=== PATIENT | female | born 1950 | race Caucasian/White ===

== ENCOUNTER 2019-06-11 11:46 | Inpatient (IN) | payer MEDICARE, OTHER ==
[~2019-06-11] VITALS: Ht 165.1 cm; Wt 87.6 kg
[2019-06-11 12:15] LABS: GLUCOSE,POINT OF CARE 188 MG/DL (70-110)
[2019-06-11 12:17] LABS: BASOPHILS % (AUTO) 0.7 % (0.0-2.0); EOSINOPHILS % (AUTO) 1.1 % (1.0-6.0); HEMATOCRIT 36.3 % (36-46); HEMOGLOBIN 12.6 g/dL (12.0-16.0); LYMPHOCYTES # (AUTO) 2.1 K/uL (1.0-4.8); LYMPHOCYTES % (AUTO) 22.9 % (22.0-44.0); MEAN CORPUSCULAR HEMOGLOBIN 31.5 pg (26.0-34.0); MEAN CORPUSCULAR HGB CONC 34.8 G/dL (31.0-37.0); MEAN CORPUSCULAR VOLUME 91 fL (80-100); MONOCYTES # (AUTO) 0.6 K/uL (0.1-1.0); MONOCYTES % (AUTO) 6.6 % (2.0-9.0); NEUTROPHILS # (AUTO) 6.2 K/uL (1.8-7.7); NEUTROPHILS % (AUTO) 68.7 % (40.0-70.0); PLATELET COUNT (AUTO) 415 K/uL (150-450); RED BLOOD CELL COUNT(AUTO) 4.01 MIL/uL (4.00-5.20); RED CELL DISTRIBUTION WIDTH 13.6 % (11.5-14.5)
[2019-06-11 12:25] LABS: ANION GAP 8 mmol/L (8-16); CALCIUM, TOTAL 9.1 mg/dL (8.8-10.5); CARBON DIOXIDE 28 mmol/L (22-29); CHLORIDE 98 mmol/L (98-107); CREATININE 0.79 mg/dL (0.60-1.30); GLOMERULAR FILTR. RATE CALC > 60 mL/min (>60); GLUCOSE,RANDOM 216 mg/dL (70-110); POTASSIUM 4.1 mmol/L (3.5-5.1); SODIUM SERUM 134 mmol/L (136-145); UREA NITROGEN, BLOOD 12 mg/dL (7-18)
[2019-06-11 12:31] LABS: ALANINE AMINOTRANSFERASE 49 U/L (12-78); ALBUMIN 3.9 g/dL (3.4-5.0); ALKALINE PHOSPHATASE 90 U/L (46-116); ASPARTATE AMINOTRANSFERASE 27 U/L (15-37); BILIRUBIN,TOTAL 0.3 mg/dL (0.1-1.0); TOTAL PROTEIN, SERUM 7.9 g/dL (6.4-8.2)
[2019-06-11] MEDS ORDERED: FAMOTIDINE 10 MG/ML 2 ML VIAL IVP ONE (12:45)
[2019-06-11] MEDS ORDERED: MAG HYDROX/AL HYDROX/SIMETH 30 ML SUSP UDCUP PO ONE (12:45)
[2019-06-11] MEDS ORDERED: IOVERSOL 350 MG/ML 100 ML VIAL ONE (12:53)
[2019-06-11] MEDS ORDERED: SODIUM CHLORIDE 0.9% 100 ML ONE (12:53)
[2019-06-11 12:54] LABS: LIPASE 119 U/L (73-393)
[2019-06-11] MEDS ORDERED: DEXTROSE 50%-WATER 25 GM/50 ML SYRINGE IVP PRN (14:00)
[2019-06-11] MEDS: METOPROLOL TARTRATE 25 MG TABLET PO SCH ×2 (14:00→20:31)
[2019-06-11] MEDS ORDERED: ASPIRIN 81 MG CHEWABLE TABLET PO ONE (15:15)
[2019-06-11] MEDS: ATORVASTATIN CALCIUM 20 MG TABLET PO SCH (15:51)
[2019-06-11 17:24] VITALS: BP 136/78
[2019-06-11 18:05] LABS: GLUCOMETER DEV NAME(LOC) 5S.1; GLUCOSE,POINT OF CARE 153 MG/DL (70-110)
[2019-06-11 20:10] VITALS: BP 129/99
[2019-06-11] MEDS: DOCUSATE SODIUM 100 MG CAPSULE PO SCH (20:31)
[2019-06-11] MEDS: INSULIN LISPRO 100 UNITS/ML SQ PRN (21:12)
[2019-06-11 22:04] LABS: GLUCOMETER DEV NAME(LOC) 5S.2A; GLUCOSE,POINT OF CARE 238 MG/DL (70-110)
[2019-06-11] MEDS: ACETAMINOPHEN 325 MG TABLET PO PRN (23:45)
[2019-06-11 23:52] VITALS: BP 121/74
[2019-06-12] VITALS (16 sets, daily range): BP systolic 111–151; BP diastolic 62–92
[2019-06-12] MEDS ORDERED: MAGNESIUM HYDROXIDE SUSPENSION 30 ML UDCUP PO PRN (00:15)
[2019-06-12] MEDS ORDERED: MORPHINE SULFATE 2 MG/ML SYRINGE IVP ONE (00:15)
[2019-06-12] MEDS: ONDANSETRON HCL 4 MG/2 ML VIAL IVP PRN ×2 (03:23→15:00)
[2019-06-12] MEDS: ACETAMINOPHEN 325 MG TABLET PO PRN (03:30)
[2019-06-12] MEDS: INSULIN LISPRO 100 UNITS/ML SQ PRN ×3 (06:38→21:37)
[2019-06-12 07:11] LABS: GLUCOMETER DEV NAME(LOC) 5S.1; GLUCOSE,POINT OF CARE 316 MG/DL (70-110)
[2019-06-12] MEDS: ATORVASTATIN CALCIUM 20 MG TABLET PO SCH (09:00)
[2019-06-12] MEDS: ASPIRIN 81 MG CHEWABLE TABLET PO SCH (09:00)
[2019-06-12] MEDS: DOCUSATE SODIUM 100 MG CAPSULE PO SCH ×2 (09:00→20:58)
[2019-06-12] MEDS ORDERED: NITROGLYCERIN 0.4 MG SUBLINGUAL TABLET #25 SL PRN (09:00)
[2019-06-12] MEDS: FAMOTIDINE 20 MG TABLET PO SCH (09:00)
[2019-06-12] MEDS: METOPROLOL TARTRATE 25 MG TABLET PO SCH (09:00)
[2019-06-12 09:19] LABS: BASOPHILS % (AUTO) 0.2 % (0.0-2.0); EOSINOPHILS % (AUTO) 0.1 % (1.0-6.0); HEMATOCRIT 36.5 % (36-46); HEMOGLOBIN 12.6 g/dL (12.0-16.0); LYMPHOCYTES # (AUTO) 1.3 K/uL (1.0-4.8); LYMPHOCYTES % (AUTO) 9.6 % (22.0-44.0); MEAN CORPUSCULAR HEMOGLOBIN 31.3 pg (26.0-34.0); MEAN CORPUSCULAR HGB CONC 34.6 G/dL (31.0-37.0); MEAN CORPUSCULAR VOLUME 91 fL (80-100); MONOCYTES # (AUTO) 0.5 K/uL (0.1-1.0); MONOCYTES % (AUTO) 3.8 % (2.0-9.0); NEUTROPHILS # (AUTO) 11.6 K/uL (1.8-7.7); PLATELET COUNT (AUTO) 464 K/uL (150-450); RED BLOOD CELL COUNT(AUTO) 4.03 MIL/uL (4.00-5.20); RED CELL DISTRIBUTION WIDTH 13.9 % (11.5-14.5)
[2019-06-12 09:27] LABS: NEUTROPHILS % (AUTO) 86.3 % (40.0-70.0)
[2019-06-12 09:45] LABS: CALCIUM, TOTAL 9.2 mg/dL (8.8-10.5); CREATININE 0.97 mg/dL (0.60-1.30); POTASSIUM 3.8 mmol/L (3.5-5.1); THYROID STIMULATING HORMONE 22.54 uIU/mL (0.36-3.74)
[2019-06-12] MEDS ORDERED: HEPARIN SODIUM 25000 UNITS/D5W 250 ML IV PRN (10:19)
[2019-06-12] MEDS ORDERED: HEPARIN SODIUM,PORCINE 5,000 UNITS/ML VIAL IVP PRN ×2 (10:30)
[2019-06-12] MEDS ORDERED: HEPARIN SODIUM,PORCINE 5,000 UNITS/ML VIAL IVP ONE ×3 (10:30→14:00)
[2019-06-12 10:56] LABS: BASOPHILS % (AUTO) 0.4 % (0.0-2.0); EOSINOPHILS % (AUTO) 0 % (1.0-6.0); HEMATOCRIT 36.4 % (36-46); HEMOGLOBIN 12.5 g/dL (12.0-16.0); LYMPHOCYTES % (AUTO) 13.2 % (22.0-44.0); MEAN CORPUSCULAR HGB CONC 34.3 G/dL (31.0-37.0); MEAN CORPUSCULAR VOLUME 90 fL (80-100); MONOCYTES # (AUTO) 0.7 K/uL (0.1-1.0); MONOCYTES % (AUTO) 4.8 % (2.0-9.0); NEUTROPHILS # (AUTO) 12.6 K/uL (1.8-7.7); NEUTROPHILS % (AUTO) 81.6 % (40.0-70.0); PLATELET COUNT (AUTO) 475 K/uL (150-450); RED BLOOD CELL COUNT(AUTO) 4.02 MIL/uL (4.00-5.20); RED CELL DISTRIBUTION WIDTH 13.9 % (11.5-14.5)
[2019-06-12] MEDS: LEVOTHYROXINE SODIUM 75 MCG TABLET PO SCH (12:00)
[2019-06-12] MEDS ORDERED: SODIUM BICARBONATE 50 MEQ/50 ML VIAL ONE (12:02)
[2019-06-12] MEDS ORDERED: IOHEXOL 300 MG/ML 150 ML VIAL ONE (12:02)
[2019-06-12] MEDS ORDERED: LIDOCAINE/PF 1% 30 ML VIAL ONE (12:02)
[2019-06-12] MEDS ORDERED: HEPARIN SODIUM 1000 UNITS/NS 1,000 ML ONE (12:02)
[2019-06-12 12:09] LABS: FREE T4 (FREE THYROXINE) 0.61 ng/dL (0.76-1.46)
[2019-06-12 12:33] LABS: GLUCOMETER DEV NAME(LOC) 5S.1; GLUCOSE,POINT OF CARE 246 MG/DL (70-110)
[2019-06-12] MEDS ORDERED: HEPARIN SODIUM 2,000 UNITS in HEPARIN SODIUM 1000 UNITS/NS 1,000 ML IARTER ONE (12:51)
[2019-06-12] MEDS ORDERED: SODIUM CHLORIDE 0.9% 500 ML IV ONE (12:51)
[2019-06-12] MEDS ORDERED: FentaNYL CITRATE-PF 100 MCG/2 ML VIAL ONE (12:53)
[2019-06-12] MEDS ORDERED: MIDAZOLAM HCL 2 MG/2 ML VIAL ONE (12:53)
[2019-06-12] MEDS ORDERED: IOHEXOL 300 MG/ML 100 ML VIAL IARTER ONE (13:00)
[2019-06-12] MEDS ORDERED: IOHEXOL 300 MG/ML 50 ML VIAL IARTER ONE ×2 (13:00→14:00)
[2019-06-12] MEDS ORDERED: FentaNYL CITRATE-PF 100 MCG/2 ML VIAL IVP ONE (13:00)
[2019-06-12] MEDS ORDERED: MIDAZOLAM HCL 2 MG/2 ML VIAL IVP ONE (13:00)
[2019-06-12] MEDS ORDERED: ASPIRIN 325 MG TABLET PO ONE (13:00)
[2019-06-12] MEDS ORDERED: LIDOCAINE 1% 30 ML/SOD BICARB 8.4% 4 ML SQ ONE (13:00)
[2019-06-12] MEDS ORDERED: IOHEXOL 300 MG/ML 150 ML VIAL IARTER ONE (13:00)
[2019-06-12] MEDS ORDERED: TICAGRELOR 90 MG TABLET PO ONE (13:00)
[2019-06-12] MEDS ORDERED: TICAGRELOR 90 MG TABLET ONE (13:04)
[2019-06-12] MEDS ORDERED: ASPIRIN 325 MG TABLET ONE (13:04)
[2019-06-12] MEDS ORDERED: IOHEXOL 300 MG/ML 50 ML VIAL ONE ×2 (13:10→13:38)
[2019-06-12] MEDS ORDERED: IOHEXOL 300 MG/ML 100 ML VIAL ONE (13:10)
[2019-06-12] MEDS ORDERED: NITROGLYCERIN 50 MG/D5% WATER 250 ML ONE (13:32)
[2019-06-12] MEDS ORDERED: VERAPAMIL HCL 2.5 MG/ML 2 ML VIAL ONE (13:32)
[2019-06-12] MEDS ORDERED: VERAPAMIL HCL 2.5 MG/ML 2 ML VIAL ICOR ONE ×2 (13:45→14:00)
[2019-06-12] MEDS ORDERED: NITROGLYCERIN/D5W 50 MG/250 ML IV BOTTLE ICOR ONE ×2 (13:45→14:00)
[2019-06-12] MEDS ORDERED: ALPRAZolam 0.5 MG TABLET PO ONE (15:15)
[2019-06-12 17:35] LABS: GLUCOSE,POINT OF CARE 236 MG/DL (70-110)
[2019-06-12] MEDS: TICAGRELOR 90 MG TABLET PO SCH (20:58)
[2019-06-12 21:58] LABS: GLUCOSE,POINT OF CARE 215 MG/DL (70-110)
[2019-06-13] VITALS (7 sets, daily range): BP systolic 97–121; BP diastolic 60–76
[2019-06-13 05:09] LABS: BASOPHILS % (AUTO) 0.3 % (0.0-2.0); EOSINOPHILS % (AUTO) 0.1 % (1.0-6.0); HEMATOCRIT 34.5 % (36-46); HEMOGLOBIN 12.2 g/dL (12.0-16.0); LYMPHOCYTES # (AUTO) 1.6 K/uL (1.0-4.8); LYMPHOCYTES % (AUTO) 10.4 % (22.0-44.0); MEAN CORPUSCULAR HEMOGLOBIN 31.7 pg (26.0-34.0); MEAN CORPUSCULAR HGB CONC 35.3 G/dL (31.0-37.0); MEAN CORPUSCULAR VOLUME 90 fL (80-100); MONOCYTES # (AUTO) 1.5 K/uL (0.1-1.0); MONOCYTES % (AUTO) 9.8 % (2.0-9.0); NEUTROPHILS # (AUTO) 11.9 K/uL (1.8-7.7); NEUTROPHILS % (AUTO) 79.4 % (40.0-70.0); PLATELET COUNT (AUTO) 388 K/uL (150-450); RED BLOOD CELL COUNT(AUTO) 3.85 MIL/uL (4.00-5.20); RED CELL DISTRIBUTION WIDTH 13.9 % (11.5-14.5)
[2019-06-13 05:26] LABS: ALANINE AMINOTRANSFERASE 69 U/L (12-78); ALBUMIN 3.5 g/dL (3.4-5.0); ALKALINE PHOSPHATASE 84 U/L (46-116); ANION GAP 10 mmol/L (8-16); ASPARTATE AMINOTRANSFERASE 378 U/L (15-37); BILIRUBIN,TOTAL 0.7 mg/dL (0.1-1.0); CALCIUM, TOTAL 8.4 mg/dL (8.8-10.5); CARBON DIOXIDE 25 mmol/L (22-29); CHLORIDE 96 mmol/L (98-107); CREATININE 0.81 mg/dL (0.60-1.30); GLOMERULAR FILTR. RATE CALC > 60 mL/min (>60); GLUCOSE,RANDOM 275 mg/dL (70-110); POTASSIUM 3.7 mmol/L (3.5-5.1); SODIUM SERUM 131 mmol/L (136-145); TOTAL PROTEIN, SERUM 7.3 g/dL (6.4-8.2); UREA NITROGEN, BLOOD 12 mg/dL (7-18)
[2019-06-13] MEDS: LEVOTHYROXINE SODIUM 75 MCG TABLET PO SCH (06:21)
[2019-06-13] MEDS: INSULIN LISPRO 100 UNITS/ML SQ PRN ×3 (06:22→21:56)
[2019-06-13 06:33] LABS: GLUCOSE,POINT OF CARE 308 MG/DL (70-110)
[2019-06-13] MEDS: DOCUSATE SODIUM 100 MG CAPSULE PO SCH ×2 (09:00→21:49)
[2019-06-13] MEDS ORDERED: ATORVASTATIN CALCIUM 40 MG TABLET PO SCH (09:00)
[2019-06-13] MEDS: LISINOPRIL 5 MG TABLET PO SCH (09:00)
[2019-06-13] MEDS: ASPIRIN 81 MG CHEWABLE TABLET PO SCH (09:10)
[2019-06-13] MEDS: FAMOTIDINE 20 MG TABLET PO SCH (09:10)
[2019-06-13] MEDS: TICAGRELOR 90 MG TABLET PO SCH ×2 (09:10→21:49)
[2019-06-13] MEDS: METOPROLOL SUCCINATE 25 MG ER TABLET PO SCH (09:14)
[2019-06-13] MEDS ORDERED: FUROSEMIDE 20 MG/2 ML VIAL ONE (09:17)
[2019-06-13] MEDS: ACETAMINOPHEN 325 MG TABLET PO PRN ×2 (09:52→16:28)
[2019-06-13] MEDS ORDERED: FUROSEMIDE 20 MG/2 ML VIAL IVP ONE (10:00)
[2019-06-13] MEDS ORDERED: BENZOCAINE/MENTHOL LOZENGE PO PRN (10:30)
[2019-06-13 12:15] LABS: GLUCOSE,POINT OF CARE 227 MG/DL (70-110)
[2019-06-13 21:48] LABS: GLUCOSE,POINT OF CARE 324 MG/DL (70-110)
[2019-06-13 22:06] LABS: GLUCOSE,POINT OF CARE 265 MG/DL (70-110)
[2019-06-14] VITALS: BP 111/70
[2019-06-14 04:00] VITALS: BP 120/72
[2019-06-14] MEDS: ACETAMINOPHEN 325 MG TABLET PO PRN ×3 (04:00→17:34)
[2019-06-14] MEDS: LEVOTHYROXINE SODIUM 75 MCG TABLET PO SCH (05:44)
[2019-06-14 05:45] LABS: BASOPHILS % (AUTO) 0.6 % (0.0-2.0); EOSINOPHILS % (AUTO) 0.2 % (1.0-6.0); HEMATOCRIT 32.3 % (36-46); HEMOGLOBIN 11.4 g/dL (12.0-16.0); LYMPHOCYTES # (AUTO) 1.9 K/uL (1.0-4.8); LYMPHOCYTES % (AUTO) 14.9 % (22.0-44.0); MEAN CORPUSCULAR HEMOGLOBIN 31.6 pg (26.0-34.0); MEAN CORPUSCULAR HGB CONC 35.3 G/dL (31.0-37.0); MEAN CORPUSCULAR VOLUME 90 fL (80-100); MONOCYTES # (AUTO) 1.4 K/uL (0.1-1.0); MONOCYTES % (AUTO) 10.9 % (2.0-9.0); NEUTROPHILS # (AUTO) 9.2 K/uL (1.8-7.7); NEUTROPHILS % (AUTO) 73.4 % (40.0-70.0); PLATELET COUNT (AUTO) 384 K/uL (150-450); RED CELL DISTRIBUTION WIDTH 13.7 % (11.5-14.5)
[2019-06-14] MEDS: INSULIN LISPRO 100 UNITS/ML SQ PRN ×4 (05:46→20:34)
[2019-06-14 06:13] LABS: ALBUMIN 3.2 g/dL (3.4-5.0); BILIRUBIN,TOTAL 0.7 mg/dL (0.1-1.0); CALCIUM, TOTAL 8.2 mg/dL (8.8-10.5); CREATININE 0.93 mg/dL (0.60-1.30); FREE T4 (FREE THYROXINE) 0.72 ng/dL (0.76-1.46); MAGNESIUM 2.1 mg/dL (1.80-2.40); POTASSIUM 3.6 mmol/L (3.5-5.1); THYROID STIMULATING HORMONE 35.68 uIU/mL (0.36-3.74); TOTAL PROTEIN, SERUM 6.3 g/dL (6.4-8.2)
[2019-06-14 06:35] LABS: GLUCOSE,POINT OF CARE 306 MG/DL (70-110)
[2019-06-14] MEDS: METOPROLOL SUCCINATE 25 MG ER TABLET PO SCH ×2 (09:00→20:29)
[2019-06-14] MEDS: LISINOPRIL 5 MG TABLET PO SCH (09:00)
[2019-06-14] MEDS: TICAGRELOR 90 MG TABLET PO SCH ×2 (09:52→20:29)
[2019-06-14] MEDS: ASPIRIN 81 MG CHEWABLE TABLET PO SCH (09:52)
[2019-06-14] MEDS: FAMOTIDINE 20 MG TABLET PO SCH (09:52)
[2019-06-14] MEDS: DOCUSATE SODIUM 100 MG CAPSULE PO SCH ×2 (09:52→20:29)
[2019-06-14] MEDS ORDERED: DEXTROSE 50%-WATER 25 GM/50 ML SYRINGE IVP PRN (12:15)
[2019-06-14 13:38] LABS: GLUCOSE,POINT OF CARE 262 MG/DL (70-110)
[2019-06-14 17:42] LABS: GLUCOMETER DEV NAME(LOC) 5N.1; GLUCOSE,POINT OF CARE 232 MG/DL (70-110)
[2019-06-14 19:40] VITALS: BP 120/67
[2019-06-14] MEDS: ATORVASTATIN CALCIUM 40 MG TABLET PO SCH (20:29)
[2019-06-14] MEDS ORDERED: ATORVASTATIN CALCIUM 40 MG TABLET PO SCH (21:00)
[2019-06-14 23:40] VITALS: BP 117/60
[2019-06-15 02:17] LABS: GLUCOMETER DEV NAME(LOC) 5S.2A; GLUCOSE,POINT OF CARE 305 MG/DL (70-110)
[2019-06-15 03:45] VITALS: BP 112/64
[2019-06-15] MEDS: LEVOTHYROXINE SODIUM 75 MCG TABLET PO SCH (05:48)
[2019-06-15] MEDS: INSULIN LISPRO 100 UNITS/ML SQ PRN ×4 (05:50→20:46)
[2019-06-15 07:42] LABS: BASOPHILS % (AUTO) 0.4 % (0.0-2.0); HEMATOCRIT 30.2 % (36-46); HEMOGLOBIN 10.8 g/dL (12.0-16.0); LYMPHOCYTES # (AUTO) 2.5 K/uL (1.0-4.8); LYMPHOCYTES % (AUTO) 21.1 % (22.0-44.0); MEAN CORPUSCULAR HGB CONC 35.7 G/dL (31.0-37.0); MEAN CORPUSCULAR VOLUME 90 fL (80-100); MONOCYTES % (AUTO) 8.8 % (2.0-9.0); NEUTROPHILS % (AUTO) 68.7 % (40.0-70.0); PLATELET COUNT (AUTO) 421 K/uL (150-450); RED BLOOD CELL COUNT(AUTO) 3.36 MIL/uL (4.00-5.20); RED CELL DISTRIBUTION WIDTH 13.8 % (11.5-14.5)
[2019-06-15 07:56] VITALS: BP 101/56
[2019-06-15 07:57] LABS: ALANINE AMINOTRANSFERASE 77 U/L (12-78); ALKALINE PHOSPHATASE 103 U/L (46-116); ANION GAP 8 mmol/L (8-16); ASPARTATE AMINOTRANSFERASE 112 U/L (15-37); BILIRUBIN,TOTAL 0.5 mg/dL (0.1-1.0); CARBON DIOXIDE 26 mmol/L (22-29); CHLORIDE 92 mmol/L (98-107); CREATININE 0.87 mg/dL (0.60-1.30); GLOMERULAR FILTR. RATE CALC > 60 mL/min (>60); GLUCOSE,RANDOM 228 mg/dL (70-110); POTASSIUM 3.7 mmol/L (3.5-5.1); SODIUM SERUM 126 mmol/L (136-145); UREA NITROGEN, BLOOD 15 mg/dL (7-18)
[2019-06-15] MEDS: FAMOTIDINE 20 MG TABLET PO SCH (08:30)
[2019-06-15] MEDS: METOPROLOL SUCCINATE 25 MG ER TABLET PO SCH ×2 (08:31→20:16)
[2019-06-15] MEDS: LISINOPRIL 5 MG TABLET PO SCH (08:31)
[2019-06-15] MEDS: TICAGRELOR 90 MG TABLET PO SCH ×2 (08:31→20:16)
[2019-06-15] MEDS: DOCUSATE SODIUM 100 MG CAPSULE PO SCH ×2 (08:31→20:16)
[2019-06-15] MEDS: ASPIRIN 81 MG CHEWABLE TABLET PO SCH (08:31)
[2019-06-15 11:12] VITALS: BP 108/59
[2019-06-15] MEDS: ONDANSETRON HCL 4 MG/2 ML VIAL IVP PRN (12:08)
[2019-06-15 16:17] VITALS: BP 103/63
[2019-06-15] MEDS: ACETAMINOPHEN 325 MG TABLET PO PRN ×2 (19:14→23:20)
[2019-06-15 19:45] VITALS: BP 110/73
[2019-06-15] MEDS: ATORVASTATIN CALCIUM 40 MG TABLET PO SCH (20:16)
[2019-06-15] MEDS ORDERED: HALOPERIDOL 1 MG TABLET PO SCH (21:00)
[2019-06-15 21:21] LABS: GLUCOMETER DEV NAME(LOC) 5S.2A; GLUCOSE,POINT OF CARE 224 MG/DL (70-110)
[2019-06-15 21:21] LABS: GLUCOMETER DEV NAME(LOC) 5S.2A; GLUCOSE,POINT OF CARE 230 MG/DL (70-110)
[2019-06-15 21:21] LABS: GLUCOMETER DEV NAME(LOC) 5S.2A; GLUCOSE,POINT OF CARE 221 MG/DL (70-110)
[2019-06-15 21:21] LABS: GLUCOMETER DEV NAME(LOC) 5S.2A; GLUCOSE,POINT OF CARE 244 MG/DL (70-110)
[2019-06-16] VITALS (7 sets, daily range): BP systolic 100–131; BP diastolic 58–74
[2019-06-16] MEDS: MORPHINE SULFATE 2 MG/ML SYRINGE IVP PRN ×2 (01:11→05:40)
[2019-06-16] MEDS: LEVOTHYROXINE SODIUM 75 MCG TABLET PO SCH (05:39)
[2019-06-16] MEDS: INSULIN LISPRO 100 UNITS/ML SQ PRN ×4 (06:27→21:27)
[2019-06-16 06:41] LABS: GLUCOMETER DEV NAME(LOC) 5S.2A; GLUCOSE,POINT OF CARE 255 MG/DL (70-110)
[2019-06-16] MEDS: FAMOTIDINE 20 MG TABLET PO SCH (08:50)
[2019-06-16] MEDS: DOCUSATE SODIUM 100 MG CAPSULE PO SCH ×2 (08:50→20:24)
[2019-06-16] MEDS: LISINOPRIL 5 MG TABLET PO SCH (08:51)
[2019-06-16] MEDS: ACETAMINOPHEN 325 MG TABLET PO PRN ×2 (08:51→17:39)
[2019-06-16] MEDS: METOPROLOL SUCCINATE 25 MG ER TABLET PO SCH ×2 (08:51→20:23)
[2019-06-16] MEDS: ASPIRIN 81 MG CHEWABLE TABLET PO SCH (08:51)
[2019-06-16] MEDS: TICAGRELOR 90 MG TABLET PO SCH ×2 (11:31→20:24)
[2019-06-16 11:39] LABS: GLUCOMETER DEV NAME(LOC) 5S.2A; GLUCOSE,POINT OF CARE 186 MG/DL (70-110)
[2019-06-16 13:16] LABS: BASOPHILS % (AUTO) 0.7 % (0.0-2.0); EOSINOPHILS % (AUTO) 0.2 % (1.0-6.0); HEMATOCRIT 32.8 % (36-46); HEMOGLOBIN 11.2 g/dL (12.0-16.0); LYMPHOCYTES # (AUTO) 1.6 K/uL (1.0-4.8); LYMPHOCYTES % (AUTO) 10.7 % (22.0-44.0); MEAN CORPUSCULAR HEMOGLOBIN 30.9 pg (26.0-34.0); MEAN CORPUSCULAR HGB CONC 34.1 G/dL (31.0-37.0); MEAN CORPUSCULAR VOLUME 91 fL (80-100); MONOCYTES # (AUTO) 1.4 K/uL (0.1-1.0); MONOCYTES % (AUTO) 9.6 % (2.0-9.0); NEUTROPHILS # (AUTO) 11.4 K/uL (1.8-7.7); NEUTROPHILS % (AUTO) 78.8 % (40.0-70.0); PLATELET COUNT (AUTO) 455 K/uL (150-450); RED BLOOD CELL COUNT(AUTO) 3.62 MIL/uL (4.00-5.20); RED CELL DISTRIBUTION WIDTH 13.6 % (11.5-14.5)
[2019-06-16 13:33] LABS: ANION GAP 12 mmol/L (8-16); CALCIUM, TOTAL 8.5 mg/dL (8.8-10.5); CARBON DIOXIDE 22 mmol/L (22-29); CHLORIDE 91 mmol/L (98-107); CREATININE 0.74 mg/dL (0.60-1.30); GLOMERULAR FILTR. RATE CALC > 60 mL/min (>60); GLUCOSE,RANDOM 261 mg/dL (70-110); POTASSIUM 4.3 mmol/L (3.5-5.1); SODIUM SERUM 125 mmol/L (136-145); UREA NITROGEN, BLOOD 15 mg/dL (7-18)
[2019-06-16] MEDS ORDERED: LAMO25TA25 PO (15:22)
[2019-06-16] MEDS ORDERED: HALO2 PO (15:22)
[2019-06-16] MEDS ORDERED: ASPI-728 PO (15:22)
[2019-06-16] MEDS ORDERED: METF-445 PO (15:22)
[2019-06-16] MEDS ORDERED: ASPIRIN 81 MG CHEWABLE TABLET PO SCH (15:30)
[2019-06-16] MEDS: ATORVASTATIN CALCIUM 40 MG TABLET PO SCH (20:23)
[2019-06-16] MEDS ORDERED: HALOPERIDOL 5 MG TABLET PO SCH (21:00)
[2019-06-16] MEDS ORDERED: LamoTRIgine 25 MG TABLET PO SCH ×2 (21:00)
[2019-06-17 04:20] VITALS: BP 106/68
[2019-06-17] MEDS: INSULIN LISPRO 100 UNITS/ML SQ PRN ×2 (06:38→11:43)
[2019-06-17] MEDS: LEVOTHYROXINE SODIUM 75 MCG TABLET PO SCH (06:39)
[2019-06-17 06:41] LABS: BASOPHILS % (AUTO) 0.3 % (0.0-2.0); EOSINOPHILS % (AUTO) 0.4 % (1.0-6.0); HEMATOCRIT 28.8 % (36-46); HEMOGLOBIN 10.3 g/dL (12.0-16.0); LYMPHOCYTES # (AUTO) 1.6 K/uL (1.0-4.8); LYMPHOCYTES % (AUTO) 14.4 % (22.0-44.0); MEAN CORPUSCULAR HEMOGLOBIN 32.1 pg (26.0-34.0); MEAN CORPUSCULAR HGB CONC 35.8 G/dL (31.0-37.0); MEAN CORPUSCULAR VOLUME 90 fL (80-100); MONOCYTES # (AUTO) 1.1 K/uL (0.1-1.0); MONOCYTES % (AUTO) 9.7 % (2.0-9.0); NEUTROPHILS # (AUTO) 8.5 K/uL (1.8-7.7); NEUTROPHILS % (AUTO) 75.2 % (40.0-70.0); PLATELET COUNT (AUTO) 458 K/uL (150-450); RED BLOOD CELL COUNT(AUTO) 3.22 MIL/uL (4.00-5.20); RED CELL DISTRIBUTION WIDTH 13.4 % (11.5-14.5)
[2019-06-17 06:50] LABS: ANION GAP 11 mmol/L (8-16); CALCIUM, TOTAL 8.7 mg/dL (8.8-10.5); CARBON DIOXIDE 24 mmol/L (22-29); CHLORIDE 94 mmol/L (98-107); CREATININE 0.61 mg/dL (0.60-1.30); GLOMERULAR FILTR. RATE CALC > 60 mL/min (>60); GLUCOSE,RANDOM 184 mg/dL (70-110); POTASSIUM 3.4 mmol/L (3.5-5.1); SODIUM SERUM 129 mmol/L (136-145); UREA NITROGEN, BLOOD 13 mg/dL (7-18)
[2019-06-17 07:33] VITALS: BP 97/56
[2019-06-17] MEDS: LISINOPRIL 5 MG TABLET PO SCH (07:59)
[2019-06-17] MEDS: METOPROLOL SUCCINATE 25 MG ER TABLET PO SCH (07:59)
[2019-06-17] MEDS: FAMOTIDINE 20 MG TABLET PO SCH (08:04)
[2019-06-17] MEDS: TICAGRELOR 90 MG TABLET PO SCH (08:04)
[2019-06-17] MEDS: ACETAMINOPHEN 325 MG TABLET PO PRN (08:04)
[2019-06-17] MEDS: DOCUSATE SODIUM 100 MG CAPSULE PO SCH ×2 (08:05→08:06)
[2019-06-17] MEDS: ASPIRIN 81 MG CHEWABLE TABLET PO SCH (08:05)
[2019-06-17] MEDS ORDERED: FUROSEMIDE 20 MG/2 ML VIAL IVP ONE (09:00)
[2019-06-17 11:33] VITALS: BP 117/63
[2019-06-17] MEDS ORDERED: POTASSIUM CHLORIDE 20 MEQ ER TABLET PO ONE (12:15)
[2019-06-17] MEDS ORDERED: LEVO75 PO (12:19)
[2019-06-17] MEDS ORDERED: LISI-660 PO (12:19)
[2019-06-17] MEDS ORDERED: FURO20 PO (12:19)
[2019-06-17] MEDS ORDERED: TICA90TA PO (12:19)
[2019-06-17] MEDS ORDERED: METO25XL PO (12:19)
[2019-06-17] MEDS ORDERED: FUROSEMIDE 20 MG TABLET PO SCH (14:30)
[2019-06-17] MEDS ORDERED: POTASSIUM CHLORIDE 10% 40 MEQ/30 ML LIQUID UDCUP PO SCH (14:30)
[2019-06-17 18:31] LABS: GLUCOMETER DEV NAME(LOC) 5S.2A; GLUCOSE,POINT OF CARE 242 MG/DL (70-110)
[2019-06-17 18:31] LABS: GLUCOMETER DEV NAME(LOC) 5S.2A; GLUCOSE,POINT OF CARE 253 MG/DL (70-110)
[2019-06-17 18:32] LABS: GLUCOMETER DEV NAME(LOC) 5S.2A; GLUCOSE,POINT OF CARE 252 MG/DL (70-110)
[2019-06-17 18:32] LABS: GLUCOMETER DEV NAME(LOC) 5S.2A; GLUCOSE,POINT OF CARE 186 MG/DL (70-110)
== END 2019-06-17 14:20 | disposition home or self-care (01) | DRG 246 ==
LOC: EMS 11:50 → 5S 15:26 → ICU 17:20 → 5S 06-14 16:40
PROVIDERS: ADMIT Internal Medicine; ATTEND Internal Medicine
PROC: 027035Z Dilation of Coronary Artery, One Artery with Two Drug-eluting Intraluminal Devices, Percutaneous Approach (ICD-10-PCS; principal; 2019-06-12)
PROC: 4A023N7 Measurement of Cardiac Sampling and Pressure, Left Heart, Percutaneous Approach (ICD-10-PCS; 2019-06-12)
PROC: B2111ZZ Fluoroscopy of Multiple Coronary Arteries using Low Osmolar Contrast (ICD-10-PCS; 2019-06-12)
PROC: B2151ZZ Fluoroscopy of Left Heart using Low Osmolar Contrast (ICD-10-PCS; 2019-06-12)
DX: I21.4 Non-ST elevation (NSTEMI) myocardial infarction (principal); I50.23 Acute on chronic systolic (congestive) heart failure; I25.5 Ischemic cardiomyopathy; I25.10 Atherosclerotic heart disease of native coronary artery without angina pectoris; E03.9 Hypothyroidism, unspecified; E78.5 Hyperlipidemia, unspecified; E11.9 Type 2 diabetes mellitus without complications; E66.9 Obesity, unspecified; I11.0 Hypertensive heart disease with heart failure; E78.00 Pure hypercholesterolemia, unspecified; Z87.891 Personal history of nicotine dependence; Z90.49 Acquired absence of other specified parts of digestive tract; Z68.32 Body mass index [BMI] 32.0-32.9, adult
CPT/HCPCS: 71260; 72193; 74160; 83735; 84439; 84443; 87081; 92920; 92928; 93005; 93306; 93308; G0378; J1644; J1940; J2250; J2270; J2405; J3010; J3490; J7050; Q9967